=== PATIENT | female | born 1940 | race Caucasian/White ===

== ENCOUNTER 2020-02-23 17:26 | Inpatient (IN) | payer MEDICARE ==
[~2020-02-23] VITALS: Ht 152.4 cm; Wt 44.9 kg
[2020-02-23 17:51] LABS: BASOPHILS # (AUTO) 0.1 /CMM (0.0-0.2); BASOPHILS % (AUTO) 0.7 % (0.0-2.0); EOSINOPHILS % (AUTO) 1.2 % (0.0-6.0); HEMATOCRIT 38 % (33-45); HEMOGLOBIN 11.8 g/dL (11.5-14.8); LYMPHOCYTES # (AUTO) 1.3 /CMM (0.8-4.8); LYMPHOCYTES % (AUTO) 16.4 % (20.0-44.0); MEAN CORPUSCULAR HGB CONC 31 g/dl (31.0-36.0); MEAN CORPUSCULAR VOLUME 92 fL (82-100); MONOCYTES # (AUTO) 0.5 /CMM (0.1-1.30); MONOCYTES % (AUTO) 6.9 % (2.0-12.0); NEUTROPHILS # (AUTO) 5.8 /CMM (1.8-8.9); NEUTROPHILS % (AUTO) 74.8 % (43.0-81.0); PLATELET COUNT (AUTO) 259 /CMM (150-450); RED BLOOD CELL COUNT(AUTO) 4.17 MIL/uL (4.0-5.2); WHITE BLOOD COUNT (AUTO) 7.7 K/uL (4.3-11.0)
[2020-02-23 18:03] LABS: CALCIUM, SERUM 9.9 mg/dL (8.5-10.1); CREATININE 0.6 mg/dL (0.6-1.3)
--- NOTE | 2020-02-23 18:08 | NUR ---
PT BIB [facility] WITH A C/O PT REC'D TOO MUCH MORPHINE TIME RELEASED AT HOME. PT'S , WHO IS AN MD, STATED THAT THE PT IS ALTERED. PT ARRIVED ON 3L O2 VIA NC. PT REC'D NARCAN NASAL SPRAY IN THE FIELD. PT WAS TRIAGED AND TAKEN TO ER 6.
[2020-02-23] MEDS ORDERED: FURO20TA4 PO (18:35)
[2020-02-23] MEDS ORDERED: GUAI120013 PO (18:35)
[2020-02-23] MEDS ORDERED: LEVO150T8 PO (18:35)
[2020-02-23] MEDS ORDERED: OXYC-128 PO (18:35)
[2020-02-23] MEDS ORDERED: GABA-534 PO (18:35)
[2020-02-23] MEDS ORDERED: MORP15TA7 PO (18:35)
[2020-02-23] MEDS ORDERED: AMLO5TAB9 PO (18:35)
[2020-02-23] MEDS ORDERED: APIX2.5T PO (18:35)
[2020-02-23] MEDS ORDERED: POTA20TA83 PO (18:35)
[2020-02-23] MEDS ORDERED: LORA-259 PO (18:35)
[2020-02-23] MEDS ORDERED: FERR325T24 PO (18:35)
--- NOTE | 2020-02-23 19:43 | NUR ---
DR MAN SPOKE TO THE PT'S WHO TOLD HIM THAT SHE HAS NOT BEEN EATING AND HAS DETERIORATED. PT TO BE ADMITTED AND MORE TESTS DONE.
[2020-02-23] MEDS ORDERED: IV NS 0.9% 1,000 ML BAG IV ONE (20:00)
--- NOTE | 2020-02-23 21:00 | NUR ---
BED ASSIGNMENT 325-2
--- NOTE | 2020-02-23 21:05 | NUR ---
IN AND OUT CATH DONE APPROX 50 ML YELLOW URINE OUTPUT NOTED.
--- NOTE | 2020-02-23 21:08 | NUR ---
REPORT GIVEN TO ARNOLDO LAWRENCE FOR EWA
--- NOTE | 2020-02-23 21:30 | NUR ---
PAGED DR PAINTER FOR CONSULT
[2020-02-23 21:33] LABS: ALANINE AMINOTRANSFERASE 27 U/L (12-78); ALBUMIN 2.9 g/dL (3.4-5.0); ALKALINE PHOSPHATASE 129 U/L (46-116); ASPARTATE AMINOTRANSFERASE 27 U/L (15-37); BILIRUBIN,DIRECT 0.1 mg/dL (0.0-0.2); BILIRUBIN,TOTAL 0.5 mg/dL (0.2-1.0); TOTAL PROTEIN, SERUM 7.2 g/dL (6.4-8.2)
[2020-02-23 21:50] VITALS: BP 124/79
--- NOTE | 2020-02-23 21:55 | NUR ---
PT TRANSPORTED PER PROTOCOL.
--- NOTE | 2020-02-23 22:00 | NUR ---
RN NOTE PATIENT TRANSFERRED FROM ER TO BED VIA GURNEY. PT WAS ACCOMPANIED BY 2 RNS UNDER ACLS PROTOCOL. PT IS ALERT AND ORIENTED X 1 WITH CONFUSION. COMPREHENSIVE PHYSICAL ASSESSMENT COMPLETED. VITAL SIGNS TAKEN AND WNL, PAGED GLADIS COOPER FOR ADMISSION ORDERS. CALL LIGHT WITHIN REACH, SAFETY MEASURES IN PLACE, WILL MONITOR.
[2020-02-23 22:05] VITALS: BP 124/79
[2020-02-23 22:16] LABS: APPEARANCE,URINE Clear (CLEAR); BILIRUBIN,URINE Negative (NEGATIVE); BLOOD, URINE Negative Ery/uL (NEGATIVE); COLOR,URINE Yellow (YELLOW); KETONES,URINE Negative (NEGATIVE); LEUKOCYTE ESTERASE ,URINE Negative (NEGATIVE); NITRITE, URINE Negative (NEGATIVE); PROTEIN,URINE Negative (NEGATIVE); UGLUCOSE Negative (NEGATIVE); UROBILINOGEN,URINE 0.2 EU/dL (0.2)
--- NOTE | 2020-02-23 22:50 | NUR ---
RN NOTE PT HAS SINUS TACHYCARDIA HR 114. NOTIFIED GLADIS COOPER.
[2020-02-23] MEDS ORDERED: ACETAMINOPHEN 650 MG/SUPP.RECT RC PRN (23:00)
[2020-02-23] MEDS ORDERED: Z GUARD REMEDY 2 OZ OINT TP PRN (23:00)
[2020-02-23] MEDS ORDERED: ONDANSETRON HCL/PF 4 MG/2 ML VIAL IVP PRN (23:00)
[2020-02-23] MEDS ORDERED: HYDROCODONE/APAP 5/325MG 1 EACH TABLET PO PRN (23:00)
[2020-02-23] MEDS: IV D5/0.45 NACL 1,000 ML IV PRN (23:10)
[2020-02-24] VITALS (7 sets, daily range): BP systolic 115–132; BP diastolic 68–90
--- NOTE | 2020-02-24 04:25 | NUR ---
RN NOTE NOTED WITH ORDER FOR CT OF THE CHEST WITH CONTRAST. ATTEMPTED TO CONTACT AZAM TALBERT () [phone] FOR TELEPHONE CONSENT BUT NO ANSWER.
--- NOTE | 2020-02-24 05:55 | NUR ---
RN NOTE ATTEMPTED TO REACH AZAM TALBERT () X 2 FOR TELEPHONE CONSENT BUT NO ANSWER. EILL ENDORSE TO MORNING RN TO FOLLOW UP.
--- NOTE | 2020-02-24 07:05 | NUR ---
RN CLOSING NOTE PATIENT CONTINUES TO BE ALERT AND ORIENTED X 1 WITH CONFUSION. IV FLUIDS RUNNING ORDERED. MAINTAINED NPO STATUS ORDERED. ATTEMPTED TO CALL AGAIN FOR CONSENT BUT NO ANSWER. CALL LIGHT WITHIN REACH, SAFETY MEASURES IN PLACE, WILL ENDORSE TO MORNING RN FOR CONTINUATION OF CARE.
[2020-02-24 07:10] LABS: BASOPHILS % (AUTO) 0.5 % (0.0-2.0); EOSINOPHILS % (AUTO) 0.3 % (0.0-6.0); HEMATOCRIT 37 % (33-45); HEMOGLOBIN 11.4 g/dL (11.5-14.8); LYMPHOCYTES # (AUTO) 0.8 /CMM (0.8-4.8); LYMPHOCYTES % (AUTO) 9.4 % (20.0-44.0); MEAN CORPUSCULAR HGB CONC 31 g/dl (31.0-36.0); MEAN CORPUSCULAR VOLUME 91 fL (82-100); MONOCYTES # (AUTO) 0.6 /CMM (0.1-1.30); MONOCYTES % (AUTO) 6.5 % (2.0-12.0); NEUTROPHILS # (AUTO) 7.1 /CMM (1.8-8.9); NEUTROPHILS % (AUTO) 83.3 % (43.0-81.0); PLATELET COUNT (AUTO) 245 /CMM (150-450); RED BLOOD CELL COUNT(AUTO) 4.04 MIL/uL (4.0-5.2); WHITE BLOOD COUNT (AUTO) 8.5 K/uL (4.3-11.0)
[2020-02-24 07:41] LABS: ALBUMIN 2.6 g/dL (3.4-5.0); BILIRUBIN,TOTAL 0.4 mg/dL (0.2-1.0); CALCIUM, SERUM 9.2 mg/dL (8.5-10.1); CREATININE 0.6 mg/dL (0.6-1.3); MAGNESIUM 2.2 mg/dL (1.8-2.4); PHOSPHORUS 2.8 mg/dL (2.5-4.9); POTASSIUM 3.6 mmol/L (3.5-5.1); TOTAL PROTEIN, SERUM 6.7 g/dL (6.4-8.2)
[2020-02-24 07:54] LABS: THYROID STIMULATING HORMONE 0.445 uIU/mL (0.358-3.74)
--- NOTE | 2020-02-24 09:42 | NUR ---
Spoke with ARNOLDO Newton at 0732. RN will attempt to get consent from family/ for CT CHEST With contrast. Please call Radiology at [phone] when patient is consented and ready for exam.
--- NOTE | 2020-02-24 09:52 | NUR ---
PATIENT UNABLE TO SIGN CONSEN FOR CT SCAN WITH CONTRAST. THE OF THE PATIENT AZAM TALBERT HAS PROVIDED THE CONSENT FOR THE CT WITH CONTRAST, AND A SECOND NURSE HAS WITNESSED THE CONSENT.
[2020-02-24] MEDS ORDERED: IOHEXOL-300 100 ML VIAL IV ONE (10:05)
[2020-02-24] MEDS ORDERED: CT SWABBABLE VALVE TRANS SET 1 EA INFUS.SET MC ONE (10:06)
[2020-02-24] MEDS: PANTOPRAZOLE 40 MG VIAL IV SCH (10:40)
[2020-02-24] MEDS ORDERED: LORAZEPAM 1 MG TABLET PO PRN (11:00)
[2020-02-24] MEDS ORDERED: oxyCODONE/APAP (5/325 MG) 1 UDTAB TABLET PO PRN (11:00)
[2020-02-24] MEDS: IV D5/0.45 NACL 1,000 ML IV PRN (11:26)
[2020-02-24] MEDS: GABAPENTIN 300 MG CAPSULE PO SCH ×2 (13:24→17:10)
--- NOTE | 2020-02-24 15:00 | NUR ---
Spoke with the of the patient about the status of the patient. The has expressed his gratitude and remains available to any new update.
[2020-02-24] MEDS: FERROUS SULFATE (325 MG) 325 MG/TAB TABLET PO SCH (17:10)
--- NOTE | 2020-02-24 18:53 | NUR ---
RN CLOSING NOTES: The is in bed resting. VS are WNL. Patietn has no s/s of acute distress at this time. Sat 98% on NC 5L O2. The patient remain A/O x1. RFA 18g, running 75ml/hr on D5 1/2 NS. The patient remains stable. All safety measures are in place, will endorse the next shift.
--- NOTE | 2020-02-24 19:50 | NUR ---
RN MS NOTE, PATIENT IN BED AWAKE ALERT AND ORIENTED TO SELF, RIGHT FA PIV 20G, IV FLUIDS INFUSING ORDERED, ON NPO STATUS, SAFETY MEASURES IN PLACE, BILATERAL 2 1/2 S/R OF BED UP, BED LOCKED AND IN LOWEST POSITION, CALL LIGHT WITHIN REACH, WILL CONTINUE TO MONITOR CLOSELY.
[2020-02-24] MEDS: MORPHINE SULFATE SR 15 MG TABLET.SA PO SCH (21:30)
[2020-02-25] MEDS: IV D5/0.45 NACL 1,000 ML IV PRN (00:56)
--- NOTE | 2020-02-25 06:43 | NUR ---
RN CLOSING NOTES, PATIENT ASLEEP BUT EASILY AROUSES TO VERBAL STIMULI, NO SOB/ACUTE DISTRESS NOTED, AT 5LPM VIA NC TOLERATED WELL, NO SIGNIFICANT CHANGE IN CONDITION, WILL ENDORSE CONTINUITY OF CARE TO ONCOMING NURSE.
[2020-02-25 08:00] VITALS: BP 136/83
[2020-02-25] MEDS: PANTOPRAZOLE 40 MG VIAL IV SCH (09:04)
[2020-02-25] MEDS: POTASSIUM CHLORIDE 20 MEQ TAB.PRT.SR PO SCH (09:05)
[2020-02-25] MEDS: AMLODIPINE BESYLATE 5 MG TABLET PO SCH (09:05)
[2020-02-25] MEDS: LEVOTHYROXINE SODIUM 75 MCG TABLET PO SCH (09:05)
[2020-02-25] MEDS: GABAPENTIN 300 MG CAPSULE PO SCH ×3 (09:05→17:41)
[2020-02-25] MEDS: FERROUS SULFATE (325 MG) 325 MG/TAB TABLET PO SCH ×2 (09:05→17:41)
[2020-02-25 09:12] LABS: BASOPHILS % (AUTO) 0.1 % (0.0-2.0); EOSINOPHILS % (AUTO) 0.3 % (0.0-6.0); HEMATOCRIT 34 % (33-45); HEMOGLOBIN 10.6 g/dL (11.5-14.8); LYMPHOCYTES # (AUTO) 0.5 /CMM (0.8-4.8); LYMPHOCYTES % (AUTO) 4.1 % (20.0-44.0); MEAN CORPUSCULAR HGB CONC 32 g/dl (31.0-36.0); MEAN CORPUSCULAR VOLUME 90 fL (82-100); MONOCYTES # (AUTO) 0.7 /CMM (0.1-1.30); MONOCYTES % (AUTO) 5.4 % (2.0-12.0); NEUTROPHILS % (AUTO) 90.1 % (43.0-81.0); PLATELET COUNT (AUTO) 196 /CMM (150-450); RED BLOOD CELL COUNT(AUTO) 3.74 MIL/uL (4.0-5.2); WHITE BLOOD COUNT (AUTO) 12.2 K/uL (4.3-11.0)
[2020-02-25 09:35] LABS: CALCIUM, SERUM 8.8 mg/dL (8.5-10.1); CARBON DIOXIDE 28 mmol/L (21-32); CHLORIDE 107 mmol/L (98-107); CREATININE 0.5 mg/dL (0.6-1.3); GLUCOSE 93 mg/dL (74-106); PHOSPHORUS 2.5 mg/dL (2.5-4.9); SODIUM SERUM 141 mmol/L (136-145); UREA NITROGEN, BLOOD 9 mg/dL (7-18)
[2020-02-25] MEDS: MORPHINE SULFATE SR 15 MG TABLET.SA PO SCH ×2 (10:36→21:30)
--- NOTE | 2020-02-25 11:21 | NUR ---
WOUND CARE CONSULT: PT PRESENTS WITH SACRAL BLANCHABLE REDNESS AND DUSKY COLOR TO FEET WITH CALLUSES, PRESENT ON ADMISSION. PT IS CACHECTIC. RECOMMENDATIONS MADE FOR SKIN PROTECTION. DISCUSSED WITH NURSING STAFF. WILL SEE PRN. PT NOTED TO BE INCONTINENT. PT ABLE TO ASSIST WITH TURNING AND REPOSITIONING. MD IN AGREEMENT WITH PLAN OF CARE. Addendum: 02/25/20 at 1123 by PATRICIA SONG WNDNU Amended: Links added.
[2020-02-25] MEDS: LEVOFLOXACIN 750 MG /D5W 150ML 150 ML IV SCH (13:05)
[2020-02-25 16:00] VITALS: BP_SYST 120; BP_SYST 128; BP_DIAS 79; BP_DIAS 81
--- NOTE | 2020-02-25 19:20 | NUR ---
M/S RN NOTES PATIENT RESTING IN BED, ALERT AND ORIENTED X1, NO RESPIRATORY DISTRESS, NO C/O PAIN AT THIS TIME. PATIENT'S SKIN WARM TO TOUCH, IV ACCESS SITE INTACT AND PATENT. PATIENT'S NEEDS ATTENDED, BED ON LOWEST LOCKED POSITION, CALL LIGHT WITHIN REACH. WILL ENDORSE TO ONCOMING NURSE.
--- NOTE | 2020-02-25 19:50 | NUR ---
RN NOTES RECEIVED PATIENT RESTING IN BED, ALERT AND ORIENTED X1, NO SIGNS OF ACUTE RESPIRATORY DISTRESS,DENIES PAIN AT THIS TIME. PATIENT'S SKIN WARM TO TOUCH, IV ACCESS INTACT AND PATENT.SAFETY MEASURES INPLACE, ASPIRATION PRECAUTION EMPHASIZED, BED ON LOWEST LOCKED POSITION, CALL LIGHT WITHIN EASY REACH. WILL CONTINUE TO MONITOR ACCORDINGLY.
[2020-02-25 20:00] VITALS: BP 116/84
[2020-02-26 00:25] VITALS: BP 116/84
--- NOTE | 2020-02-26 06:03 | NUR ---
RN NOTES ALL NEEDS ATTENDED AND MET, ABLE TO REST AND SLEPT AT INTERVALS, DENIES ANY PAIN, PATIENT RESTING IN BED, ALERT AND ORIENTED X1, NO SIGNS OF ACUTE RESPIRATORY DISTRESS,DENIES PAIN AT THIS TIME. PATIENT'S SKIN WARM TO TOUCH, IV ACCESS INTACT AND PATENT.SAFETY MEASURES INPLACE, ASPIRATION PRECAUTION EMPHASIZED, BED ON LOWEST LOCKED POSITION, CALL LIGHT WITHIN EASY REACH. WILL ENDORSE TO AM NURSE FOR CONTINUITY OF CARE.
[2020-02-26] MEDS: IV D5/0.45 NACL 1,000 ML IV PRN (07:13)
[2020-02-26 07:35] LABS: BASOPHILS % (AUTO) 0.1 % (0.0-2.0); EOSINOPHILS % (AUTO) 0.1 % (0.0-6.0); HEMATOCRIT 33 % (33-45); HEMOGLOBIN 10.5 g/dL (11.5-14.8); LYMPHOCYTES # (AUTO) 0.6 /CMM (0.8-4.8); MEAN CORPUSCULAR HGB CONC 32 g/dl (31.0-36.0); MEAN CORPUSCULAR VOLUME 89 fL (82-100); MONOCYTES # (AUTO) 0.7 /CMM (0.1-1.30); MONOCYTES % (AUTO) 5.2 % (2.0-12.0); NEUTROPHILS # (AUTO) 11.7 /CMM (1.8-8.9); NEUTROPHILS % (AUTO) 89.6 % (43.0-81.0); PLATELET COUNT (AUTO) 230 /CMM (150-450); RED BLOOD CELL COUNT(AUTO) 3.67 MIL/uL (4.0-5.2)
[2020-02-26 07:39] LABS: CALCIUM, SERUM 9.1 mg/dL (8.5-10.1); CARBON DIOXIDE 26 mmol/L (21-32); CHLORIDE 105 mmol/L (98-107); CREATININE 0.5 mg/dL (0.6-1.3); GLUCOSE 93 mg/dL (74-106); PHOSPHORUS 2.6 mg/dL (2.5-4.9); POTASSIUM 3.2 mmol/L (3.5-5.1); SODIUM SERUM 139 mmol/L (136-145); UREA NITROGEN, BLOOD 9 mg/dL (7-18)
[2020-02-26 08:00] VITALS: BP_SYST 136; BP_DIAS 67; BP_DIAS 87
--- NOTE | 2020-02-26 08:00 | NUR ---
m/s substation electrician supervisor: initial assessment received pt in bed awake, a/ox2, able to make needs known with confusion and disorientation to place and situation. reality orientation provided prn. no distress noted. will continue to monitor.
[2020-02-26] MEDS: FERROUS SULFATE (325 MG) 325 MG/TAB TABLET PO SCH ×2 (09:36→17:00)
[2020-02-26] MEDS: LEVOTHYROXINE SODIUM 75 MCG TABLET PO SCH (09:36)
[2020-02-26] MEDS: GABAPENTIN 300 MG CAPSULE PO SCH ×3 (09:36→17:00)
[2020-02-26] MEDS: AMLODIPINE BESYLATE 5 MG TABLET PO SCH (09:36)
[2020-02-26] MEDS: POTASSIUM CHLORIDE 20 MEQ TAB.PRT.SR PO SCH (09:37)
[2020-02-26] MEDS: MORPHINE SULFATE SR 15 MG TABLET.SA PO SCH (09:37)
[2020-02-26] MEDS: PANTOPRAZOLE 40 MG VIAL IV SCH (09:51)
[2020-02-26] MEDS ORDERED: POTASSIUM CHLORIDE 20 MEQ TAB.PRT.SR PO ONE (10:00)
--- NOTE | 2020-02-26 10:00 | NUR ---
m/s senior sharepoint architect: notes incontinent care rendered. kept clean and dry. turned and repositioned. will continue to monitor.
[2020-02-26] MEDS: LEVOFLOXACIN 750 MG /D5W 150ML 150 ML IV SCH (11:23)
--- NOTE | 2020-02-26 12:00 | NUR ---
m/s business developer: notes lunch served. hob elevated. instructed to call for assistance. case management trying to reach , but no answer; left message via answering machine.
--- NOTE | 2020-02-26 14:00 | NUR ---
m/s assistant buyer: notes case management still couldn't get a hold of pt's (linda), left message to call hospital re: d'c home today. pt made aware and also she couldn't reach him. will try again. instructed to call for assistance. will continue to monitor.
[2020-02-26 16:00] VITALS: BP 120/77
--- NOTE | 2020-02-26 16:00 | NUR ---
m/s middleware solutions architect: notes after multiple attempts calling by cm,cn, and staff. informed pt that pt unable to ambulate and needs an ambulance to pick her up or someone needs help her. transfer call to [facility] to discuss transportation set up.
--- NOTE | 2020-02-26 16:15 | NUR ---
m/s laborer pullet farm: notes per ramila (james), refused ambulance and will rather pick her up and bring her home. called and informed him that he needs to bring clothes and help to the car. insisting that he will make her walk, informed her that pt is unable to walk. says that he will bring a walker and make her walk.
--- NOTE | 2020-02-26 17:00 | NUR ---
m/s eeo officer: notes pt unable to sign all discharge papers due to cognitive impairment. 2 licensed staff signed all d'c papers and will provide copies to pt before d'c. per ramila (james), refused hospice arrangement from the hospital and will follow up with pt's oncologist.
--- NOTE | 2020-02-26 17:19 | NUR ---
m/s landscaping supervisor: notes in the lobby and brought clothes and to pick up operator pt.
--- NOTE | 2020-02-26 17:30 | NUR ---
m/s order administrator: notes h/l removed with tip intact. assisted pt with her clothes. kept clean and dry.
--- NOTE | 2020-02-26 17:45 | NUR ---
m/s night filler: notes brought pt to the lobby to meet her and ask again if he can take her home safely. pt insisting she can walk, but unable to stand up straight. and pt arguing in the lobby and finally agreed for an ambulance to take her home. cn and case management. brought pt back to unit and dinner served, but refused. will continue to monitor.
--- NOTE | 2020-02-26 19:00 | NUR ---
m/s conventions assistant: notes informed linda () that ambulance will be here at 1999 to bring her home. per , he will be home waiting. pt made aware.
--- NOTE | 2020-02-26 19:20 | NUR ---
m/s yoghurt maker: notes report given to roland (rn) for continuity of care.
--- NOTE | 2020-02-26 20:25 | NUR ---
RN NOTES RECEIVED PATIENT AWAKE ON BED, ALERT ORIENTED X1, CALM, NO SIGNS AND SYMPTOMS OF ACUTE DISTRESS NOTED. AWAITING FOR AMBULANCE TO PICK HER UP, DISCHARGE TO HOME. AZAM WILL BE AWAITING AT HOME. SAFETY MEASURES IN PLACE, CALL LIGHT WITHIN EASY REACH. ALL NEEDS ANTICIPATED. WILL CONTINUE TO MONITOR ACCORDINGLY.
--- NOTE | 2020-02-26 20:33 | NUR ---
RN NOTES PICKED UP BY [id number] ( [facility] ). DISCHARGE PACKET GIVEN, ALL NEEDS ATTENDED, PATIENT LEFT THE UNIT IN STABLE CONDITION, VITAL SIGNS WITHIN PATIENT'S NORMAL RANGE, DENIES ANY PAIN OR DISCOMFORT. CHARGE NURSE KAILASH,RN AWARE OF THE DISCHARGE.
== END 2020-02-26 20:30 | disposition home or self-care (01) | DRG 917 ==
LOC: ER 17:33 → TELE 21:27 → MED 02-24 08:15
PROVIDERS: ADMIT Hospitalist; ATTEND Internal Medicine
DX: T40.2X1A Poisoning by other opioids, accidental (unintentional), initial encounter (principal); G92 Toxic encephalopathy; E43 Unspecified severe protein-calorie malnutrition; E87.0 Hyperosmolality and hypernatremia; Z68.1 Body mass index [BMI] 19.9 or less, adult; R64 Cachexia; M84.48XA Pathological fracture, other site, initial encounter for fracture; Z66 Do not resuscitate; E03.9 Hypothyroidism, unspecified; E86.1 Hypovolemia; E87.6 Hypokalemia; G89.29 Other chronic pain; I10 Essential (primary) hypertension; E86.0 Dehydration; Z79.891 Long term (current) use of opiate analgesic; Z79.899 Other long term (current) drug therapy; Z85.118 Personal history of other malignant neoplasm of bronchus and lung; Z87.891 Personal history of nicotine dependence; R40.2432 Glasgow coma scale score 3-8, at arrival to emergency department; E88.09 Other disorders of plasma-protein metabolism, not elsewhere classified; R59.0 Localized enlarged lymph nodes
CPT/HCPCS: 36415; 70450-TC; 71045-TC; 71260-TC; 80048-TC; 80053-TC; 80061-TC; 80076-TC; 81000-TC; 83735-TC; 84100-TC; 84443-TC; 84484-TC; 85025-TC; 87081-TC; 87086-TC; 92611-TC; 97530-TC; C9113; G0378; J1956; J3490; J7030; J7042; Q9967